=== PATIENT | female | born 1960 | race American Indian/Alaskan Native ===

== ENCOUNTER 2020-10-15 06:38 | Day surgery (SDC) | payer OTHER ==
[2020-10-15] MEDS ORDERED: SODIUM CHLORIDE 0.9% 1000 ML 1,000 ML IV SCH (07:00)
[2020-10-15] MEDS ORDERED: propofoL 200 MG/20 ML VIAL IV ONE ×2 (07:20)
[2020-10-15] MEDS ORDERED: LIDOCAINE MPF (2%) 20 MG/1 ML VIAL 5 ML ONE (07:20)
[2020-10-15] MEDS ORDERED: DEXTROSE 50% IN WATER (25GM) 50 ML SYRINGE IV ONE ×2 (07:28→07:38)
--- NOTE | 2020-10-15 07:44 | Anesthesia Day of Surgery ---
Anesthesia Day of Surgery - Day of Surgery Patient Examined: Yes Patient H&P Reviewed: Yes Patient is NPO: Yes Beta Blockers: No (n/a) Cardiac Clearance: No (n/a) Pulmonary Clearance: No (n/a) Kj's Test: N/A
--- NOTE | 2020-10-15 07:44 | Anesthesia Consultation ---
Anesthesia Consult and Med Hx Date of service: 10/15/20 - Airway Anesthetic Teeth Evaluation: Good ROM Head & Neck: Adequate Mental/Hyoid Distance: Adequate Mallampati Class: Class II Intubation Access Assessment: Probably Good - Pulmonary Exam CTA: Yes - Cardiac Exam Cardiac Exam: RRR - Pre-Operative Health Status ASA Pre-Surgery Classification: ASA4 Proposed Anesthetic Plan: MAC - Pulmonary Hx Smoking: No Hx Respiratory Symptoms: No - Cardiovascular System Hx Hypertension: Yes Hx Cardia Arrhythmia: No - Central Nervous System Hx Neuromuscular Disorder: No Hx Psychiatric Problems: No - Gastrointestinal Hx Gastroesophageal Reflux Disease: No - Endocrine Hx Renal Disease: Yes Hx End Stage Renal Disease: Yes (at home peritoneal dialysis) Hx Liver Disease: No Hx Insulin Dependent Diabetes: Yes (FBS 37; given half amp of D50W, to recheck in 20 minutes) - Hematic Hx Anemia: Yes (takes iron) - Other Systems Hx Alcohol Use: No Hx Cancer: No - Additional Comments Anesthesia Medical History Comments: no h/o GAC, no FHAC
[2020-10-15] MEDS ORDERED: GENTAMICIN 60 MG in SODIUM CHLORIDE 0.9% 100 ML IV ONE (09:00)
[2020-10-15] MEDS ORDERED: ceFAZolin/NS 1 GM/50 ML 1 GM/50 ML BAG IV NR (09:00)
[2020-10-15 09:50] VITALS: BP 120/66
--- NOTE | 2020-10-15 09:56 | Short Stay Summary ---
Short Stay Documentation Date of service: 10/15/20 Narrative H&P: The patient presents for surveillance colonoscopy. History of colon polyps 5 years ago. - History Past Medical History: ESRD (On home dialysis), hypertension Past Surgical History: No surgical history Social history: no significant social history, lives with family - Allergies and Medications Current Medications: Allergies peanut Allergy (Verified 10/15/20 08:46) Unknown Home Medications Medication Instructions Recorded Confirmed Last Taken Type Losartan Potassium [Cozaar] 100 mg PO DAILY 11/16/17 11/16/17 10/15/20 06:00 History RX: NIFEdipine [Nifedipine ER] 60 mg PO DAILY 11/16/17 11/16/17 10/15/20 06:00 History AtorvaSTATin 20 mg PO DAILY 10/11/20 10/15/20 10/11/20 20:00 History Brimonidine Tartrate 0.2% 10/11/20 10/15/20 06:00 History Calcitriol 10/11/20 10/12/20 09:00 History Dialyvite 800-Zinc 15 mg Tab 10/11/20 10/12/20 09:00 History Dorzolamide-Timolol 2%-0.5% 10/11/20 10/14/20 20:00 History Gentamicin Sulfate 10/11/20 10/14/20 21:00 History Januvia 100 mg PO DAILY 10/11/20 10/15/20 10/14/20 09:00 History Levemir VIAL 15 units SQ HS 10/11/20 10/15/20 10/14/20 20:00 History Metoprolol Succinate 20 mg PO DAILY 10/11/20 10/15/20 10/15/20 06:00 History Potassium Chloride 20 meq PO DAILY 10/11/20 10/15/20 10/12/20 09:00 History Sevelamer Carbonate 800 mg PO TID 10/11/20 10/15/20 10/12/20 17:00 History - Physical exam General appearance: no acute distress, well-nourished Integumentary: no rash, no growths HEENT: Atraumatic, PERRLA, EOMI, Mucous membr. moist/pink Lungs: Clear to auscultation Breasts: deferred Heart: Regular rate, Normal S1, Normal S2, No murmurs Gastrointestinal: normoactive bowel sounds, no tenderness, no distended, no masses, no guarding, no obese Female Genitourinary: deferred Rectal Exam: normal exam-external/orifice, no mass Extremities: no ischemia, pulses intact, pulses symmetrical, No edema, normal temperature, normal color, Full ROM Neurological: Normal gait, Normal speech, Strength at 5/5 X4 ext, Normal tone, Sensation intact, Cranial nerves 3-12 NL - Brief post op/procedure progress note Date of procedure: 10/15/20 Findings: See dictation in Provations Estimated blood loss: none Pathology: none Condition: stable - Disposition Condition at discharge: Good Disposition: DC-01 TO HOME OR SELFCARE - Discharge Diagnoses (1) History of colon polyps Status: Acute (2) ESRD (end stage renal disease) on dialysis Status: Acute Short Stay Discharge Plan Activity: other (No driving for 24 hours) Weight Bearing Status: Weight Bear as Tolerated Diet: renal Additional Instructions: NO DRIVING FOR 24 HOURS PLEASE AVOID SPICY AND GREASY FOR FOODS FOR THE FIRST MEAL TODAY FOLLOW-UP IS NOT NEEDED. CALL THE OFFICE IF YOU HAVE ANY QUESTIONS OR CONCERNS REGARDING YOUR PROCEDURE TODAY. Follow up with: RODRIGO MADISON MD [Primary Care Provider] - 7 Days Forms: Post Sedation D/C Instructions
--- NOTE | 2020-10-15 15:43 | Post Anesthesia Evaluation ---
- Post Anesthesia Evaluation Patient Participated: Yes Airway Patent: Yes Stable Respiratory Function: Yes Nausea/Vomiting: No Temp > 96.8F: Yes Pain Manageable: Yes Adequeate Hydration: Yes Anesthesia Complications: No Block Receding Appropriately: Not Applicable Patient on Ventilator: No
== END 2020-10-15 09:40 | disposition home or self-care (01) ==
LOC: GIO 06:38
PROVIDERS: ATTEND Internal Medicine Gastroenterology
DX: Z12.11 Encounter for screening for malignant neoplasm of colon (principal); K63.89 Other specified diseases of intestine; I12.0 Hypertensive chronic kidney disease with stage 5 chronic kidney disease or end stage renal disease; N18.6 End stage renal disease; E11.22 Type 2 diabetes mellitus with diabetic chronic kidney disease; Z86.010 Personal history of colon polyps; Z79.899 Other long term (current) drug therapy; Z98.890 Other specified postprocedural states; Z88.8 Allergy status to other drugs, medicaments and biological substances; Z72.89 Other problems related to lifestyle
CPT/HCPCS: 45378; 82962; J0690; J1580; J2704; J7030